=== PATIENT | female | born 1990 | race Caucasian/White ===

== ENCOUNTER → 2017-01-29 | Day surgery (SDC) | payer OTHER ==
[2017-01-29 08:23] LABS: HCT 30.1 % (37.0-47.0); HGB 8.4 g/dl (12.5-16.0); MCH 18.8 pg (25.0-31.0); MCHC 27.9 g/dL (32.0-36.0); MCV 67.5 fL (78.0-100.0); MPV 9.3 fL (6.0-9.5); RBC 4.46 M/uL (4.20-5.40); RDW 17.1 % (11.5-14.0); WBC 4.6 K/uL (4.0-10.5)
[2017-01-29 08:38] LABS: ALBUMIN 4.6 g/dL (3.5-5.0); BILIRUBIN - TOTAL 0.5 mg/dL (0.1-1.0); CREATININE 0.8 mg/dL (0.5-1.0); GLOBULIN (CALCULATION) 2.9 g/dL (2.2-4.2); POTASSIUM 3.4 mmol/L (3.5-5.1); TOTAL PROTEIN 7.5 g/dL (6.4-8.3)
== END | disposition home or self-care (01) ==
LOC: FAS 07:59
PROVIDERS: Surgery
DX: K80.10 Calculus of gallbladder with chronic cholecystitis without obstruction (principal); K21.9 Gastro-esophageal reflux disease without esophagitis; D50.9 Iron deficiency anemia, unspecified; Z98.890 Other specified postprocedural states; Z80.0 Family history of malignant neoplasm of digestive organs; F17.210 Nicotine dependence, cigarettes, uncomplicated
CPT/HCPCS: 36415; 74300; 80053; 84703; 88304; 93005; J0690; J1100; J1170; J1885; J2405; J2704; J2710; J3010; Q9962

== ENCOUNTER 2021-05-05 16:14 | Emergency (ER) | payer OTHER ==
[~2021-05-05] VITALS: Ht 162.6 cm; Wt 99.8 kg
[2021-05-05 17:08] LABS: BASOPHIL 0.5 % (0-2); EOSINOPHIL 3.1 % (0-5); HGB 11.4 g/dl (12.5-16.0); LYMPHOCYTE 37.8 % (15-48); MCH 29.6 pg (25.0-31.0); MCHC 33.5 g/dL (32.0-36.0); MCV 88.3 fL (78.0-100.0); MONOCYTE 5.4 % (0-12); NEUTROPHIL 52.5 % (41-80); NRBC 0; PLT 217 K/uL (150-400); RBC 3.85 M/uL (4.20-5.40); WBC 6.1 K/uL (4.0-10.5)
[2021-05-05 17:31] LABS: BUN/CREAT RATIO (CALC) 9.6 RATIO; CREATININE 0.73 mg/dL (0.51-0.95); POTASSIUM 3.5 mmol/L (3.5-5.1)
[2021-05-05] MEDS ORDERED: ZPAK PO (19:40)
[2021-05-05] MEDS ORDERED: PERCOCET 5-3251 EACH PO (19:40)
[2021-05-05] MEDS ORDERED: MEDROL 4MG DOSEP4 MG PO (19:40)
== END 2021-05-05 19:51 | disposition home or self-care (01) ==
LOC: FER 16:14
PROVIDERS: Emergency Medicine Emergency Medical Services
DX: J18.9 Pneumonia, unspecified organism (principal); J95.89 Other postprocedural complications and disorders of respiratory system, not elsewhere classified; J98.11 Atelectasis; R10.84 Generalized abdominal pain; R07.89 Other chest pain; Z90.710 Acquired absence of both cervix and uterus; Y83.6 Removal of other organ (partial) (total) as the cause of abnormal reaction of the patient, or of later complication, without mention of misadventure at the time of the procedure
CPT/HCPCS: 36415; 36600; 71275; 80048; 82803; 83880; 84484; 85025; 85379; 93005; J1170; J1885; J2405; J2930; Q9967